=== PATIENT | female | born 1970 | race Caucasian/White ===

== ENCOUNTER 2023-03-06 15:12 | Outpatient (CLI) | payer MEDICARE, MEDICAID, SELFPAY ==
--- NOTE | ~2023-03-06 | XR_ITS ---
EXAMINATION: XR facial bones min 3V DATE: 03/06/2023 16:27 INDICATION: Facial pain. Multiple teeth removed. TECHNIQUE: 4 views of the facial bones were obtained. COMPARISON: None. FINDINGS: Bone alignment is normal. No fracture. There is mucosal thickening in the maxillary sinuses . The patient is edentulous. IMPRESSION: 1. No fracture. Reviewed, dictated and finalized at location A. IMPRESSION: 1. No fracture.
[2023-03-06 15:38] LABS: Basophils Absolute Auto 0.03 K/mm3 (0.00-0.10); Basophils Percent Auto 0.4 % (0.0-1.0); Eosinophils Percent Auto 1.3 % (1.0-6.0); Hemoglobin 12.6 g/dL (12.0-15.0); Immature Granulocyte Absolute 0.03 K/mm3 (0.00-0.00); Immature Granulocyte Percent A 0.4 % (0.0-0.0); Lymphocytes Absolute Auto 2.29 K/mm3 (1.10-4.50); Lymphocytes Percent Auto 29.6 % (18.0-42.0); Mean Corpuscular HGB Conc 32.3 g/dL (32.0-36.0); Mean Corpuscular Hemoglobin 28.2 pg (27.0-31.0); Mean Corpuscular Volume 87.2 fL (78.0-102.0); Mean Platelet Volume 10.1 fl (9.2-11.8); Monocytes Absolute Auto 0.47 K/mm3 (0.10-0.90); Monocytes Percent Auto 6.1 % (2.0-11.0); Neutrophils Absolute Auto 4.8 K/mm3 (1.7-7.2); Neutrophils Percent Auto 62.2 % (50.0-70.0); Platelet Count Result 367 K/mm3 (150-420); Red Blood Count 4.47 M/mm3 (4.20-5.40); White Blood Count 7.7 K/mm3 (4.8-10.8)
[2023-03-06 16:35] LABS: Anion Gap 9 mmol/L (8-16); Blood Urea Nitrogen 15 mg/dL (7-18); Calcium 9.4 mg/dL (8.5-10.1); Carbon Dioxide 29 mmol/L (21-32); Chloride 102 mmol/L (98-108); Estimated Glomerular Filt Rate > 60; Glucose 125 mg/dL (70-99); Osmolality Calculated 291 mOsm/kg (285-295); Potassium 4.1 mmol/L (3.5-5.1); Sodium 140 mmol/L (136-145)
[2023-03-07 08:54] LABS: Hemoglobin A1C 6.7 % (<5.7)
== END 2023-03-06 15:13 | disposition home or self-care (01) ==
LOC: CHSLAB 15:24
PROVIDERS: PCP Family Medicine; Visit Provider Family Medicine
DX: K08.89 Other specified disorders of teeth and supporting structures (principal); E72.51 Non-ketotic hyperglycinemia
CPT/HCPCS: 36415; 70150; 80048; 83036; 85025

== ENCOUNTER 2023-09-16 09:34 | Outpatient (CLI) | payer MEDICARE, SELFPAY ==
[2023-09-16 09:48] LABS: Basophils Absolute Auto 0.05 K/mm3 (0.00-0.10); Basophils Percent Auto 0.5 % (0.0-1.0); Eosinophils Absolute Auto 0.09 K/mm3 (0.02-0.50); Eosinophils Percent Auto 0.9 % (1.0-6.0); Hematocrit 42.1 % (35.0-49.0); Hemoglobin 13.5 g/dL (12.0-15.0); Immature Granulocyte Absolute 0.03 K/mm3 (0.00-0.00); Immature Granulocyte Percent A 0.3 % (0.0-0.0); Lymphocytes Absolute Auto 1.98 K/mm3 (1.10-4.50); Lymphocytes Percent Auto 20.7 % (18.0-42.0); Mean Corpuscular HGB Conc 32.1 g/dL (32.0-36.0); Mean Corpuscular Hemoglobin 28.5 pg (27.0-31.0); Mean Platelet Volume 11.1 fl (9.2-11.8); Monocytes Absolute Auto 0.56 K/mm3 (0.10-0.90); Monocytes Percent Auto 5.9 % (2.0-11.0); Neutrophils Absolute Auto 6.9 K/mm3 (1.7-7.2); Neutrophils Percent Auto 71.7 % (50.0-70.0); Platelet Count Result 327 K/mm3 (150-420); Red Blood Count 4.73 M/mm3 (4.20-5.40); White Blood Count 9.6 K/mm3 (4.8-10.8)
[2023-09-16 10:23] LABS: Alanine Aminotransferase 17 U/L (14-59); Albumin Level 3.9 g/dL (3.4-5.0); Alkaline Phosphatase 70 U/L (46-116); Anion Gap 5 mmol/L (8-16); Aspartate Amino Transferase 12 U/L (15-37); Bilirubin,Total 0.3 mg/dL (0.00-1.00); Blood Urea Nitrogen 12 mg/dL (7-18); Calcium 9.2 mg/dL (8.5-10.1); Carbon Dioxide 34 mmol/L (21-32); Chloride 103 mmol/L (98-108); Estimated Glomerular Filt Rate > 60; Glucose 152 mg/dL (70-99); Osmolality Calculated 296 mOsm/kg (285-295); Potassium 4.1 mmol/L (3.5-5.1); Sodium 142 mmol/L (136-145); Thyroid Stimulating Hormone 2.49 uIU/mL (0.36-3.74); Total Protein 7.1 g/dL (6.4-8.2)
== END 2023-09-16 09:35 | disposition home or self-care (01) ==
PROVIDERS: PCP Family Medicine; Visit Provider Family Medicine
DX: I10 Essential (primary) hypertension (principal); E11.9 Type 2 diabetes mellitus without complications
CPT/HCPCS: 36415; 80053; 83036; 84443; 85025

== ENCOUNTER 2023-12-10 09:48 | Outpatient (CLI) | payer MEDICARE, MEDICAID, SELFPAY ==
--- NOTE | ~2023-12-10 | XR_ITS ---
EXAMINATION: XR tibia fibula RT 2V INDICATION: Palpable lump of the right lower extremity TECHNIQUE: Two views of the right tibia and fibula are obtained. COMPARISON: None available FINDINGS: Bone alignment is normal. There is no fracture. No definite suspicious soft tissue abnormal ity is identified. There is a small soft tissue calcification medial to the knee. IMPRESSION: 1. Unremarkable leg radiographs. Reviewed, dictated and finalized at location B. ING ELEMENT BUILDER
--- NOTE | ~2023-12-10 | MM_ITS ---
EXAMINATION: MM screening layton BI w jesusita HISTORY: Screening TECHNIQUE: Craniocaudal and mediolateral oblique 3-D tomosynthesis images were obtained and synthetic 2-D images were generated. CAD analysis was submitted and interpreted. COMPARISON: No prior mammogram is available for comparison at this institution. BREAST PARENCHYMAL COMPOSITION: Not dense: There are scattered areas of fibroglandular density. FINDINGS: There is no evidence of suspicious mass, calcification, or architectural distortion to sugg est malignancy in either breast. There has been no suspicious interval change. IMPRESSION: 1. No mammographic evidence of malignancy. 2. Recommend routine screening mammography in one year. BI-RADS Category 1: Negative Reviewed, dictated and finalized at location A. E TRANSPORTATION TECHNICIAN
[2023-12-10 10:11] LABS: Basophils Absolute Auto 0.03 K/mm3 (0.00-0.10); Basophils Percent Auto 0.3 % (0.0-1.0); Eosinophils Absolute Auto 0.11 K/mm3 (0.02-0.50); Eosinophils Percent Auto 1.2 % (1.0-6.0); Hematocrit 43.5 % (35.0-49.0); Hemoglobin 13.6 g/dL (12.0-15.0); Immature Granulocyte Absolute 0.03 K/mm3 (0.00-0.00); Immature Granulocyte Percent A 0.3 % (0.0-0.0); Lymphocytes Absolute Auto 2.21 K/mm3 (1.10-4.50); Lymphocytes Percent Auto 23.7 % (18.0-42.0); Mean Corpuscular HGB Conc 31.3 g/dL (32.0-36.0); Mean Corpuscular Hemoglobin 27.2 pg (27.0-31.0); Mean Platelet Volume 10.8 fl (9.2-11.8); Monocytes Absolute Auto 0.62 K/mm3 (0.10-0.90); Monocytes Percent Auto 6.7 % (2.0-11.0); Neutrophils Absolute Auto 6.3 K/mm3 (1.7-7.2); Neutrophils Percent Auto 67.8 % (50.0-70.0); Platelet Count Result 341 K/mm3 (150-420); Red Cell Distribution Width 13.2 % (11.6-14.4); White Blood Count 9.3 K/mm3 (4.8-10.8)
== END 2023-12-10 09:49 | disposition home or self-care (01) ==
LOC: CHSLAB 09:51
PROVIDERS: PCP Family Medicine; Visit Provider Family Medicine
DX: M89.8X6 Other specified disorders of bone, lower leg (principal); Z12.31 Encounter for screening mammogram for malignant neoplasm of breast; R22.1 Localized swelling, mass and lump, neck
CPT/HCPCS: 36415; 73590; 77063; 77067; 85025

== ENCOUNTER 2024-01-06 11:08 | Outpatient (CLI) | payer MEDICARE, MEDICAID, SELFPAY ==
--- NOTE | ~2024-01-06 | XR_ITS ---
Right Shoulder Technique: AP and scapular Y views were obtained. Clinical History: Pain Findings: No fracture or dislocation is seen. Osseous alignment is anatomic. The glenohumeral and acr omioclavicular joint spaces are preserved. Soft tissues are unremarkable. Impression: Unremarkable right shoulder radiographs. Reviewed, dictated and finalized at [facility]. Impression: Unremarkable right shoulder radiographs.
== END 2024-01-06 11:09 | disposition home or self-care (01) ==
LOC: CHSIMG 11:11
PROVIDERS: PCP Family Medicine; Visit Provider Family Medicine
DX: M25.511 Pain in right shoulder (principal)
CPT/HCPCS: 73030

== ENCOUNTER 2024-04-19 16:03 | Outpatient (CLI) | payer MEDICARE, MEDICAID, SELFPAY ==
--- NOTE | ~2024-04-19 | XR_ITS ---
XR hip BI wo pelvis Ordering provider: Shahbaz Hawley MD History: . Pain in hip, Radiculopathy . Comparison: None. FINDINGS: BONES: No acute fracture or dislocation. HIP JOINT SPACES: Normal. SACROILIAC JOINT SPACES/LUMBAR SPINE: The sacroiliac joint spaces shows left sacroiliitis.. Mild dege nerative changes of the visualized lower lumbar spine. PUBIC SYMPHYSIS: Normal. SOFT TISSUES: Normal. IMPRESSION: No acute osseous abnormality of the bilateral hips and pelvis. Reviewed, dictated and finalized at location A.
--- NOTE | ~2024-04-19 | XR_ITS ---
3 VIEWS LUMBAR SPINE Ordering provider: Shahbaz Hawley MD History: . Pain in hip, Radiculopathy . Comparison: None. FINDINGS: VERTEBRAL BODIES: No visible fracture or subluxation. DISK SPACES: Normal. Multilevel facet joint disease SOFT TISSUES: Normal. Vascular calcifications. IMPRESSION: No acute osseous abnormality lumbar spine. Reviewed, dictated and finalized at location A.
[2024-04-19 16:45] LABS: Basophils Absolute Auto 0.05 K/mm3 (0.00-0.10); Basophils Percent Auto 0.5 % (0.0-1.0); Hemoglobin 12.4 g/dL (12.0-15.0); Immature Granulocyte Absolute 0.02 K/mm3 (0.00-0.00); Immature Granulocyte Percent A 0.2 % (0.0-0.0); Lymphocytes Absolute Auto 2.67 K/mm3 (1.10-4.50); Lymphocytes Percent Auto 26.6 % (18.0-42.0); Mean Corpuscular HGB Conc 32.6 g/dL (32-36); Mean Corpuscular Hemoglobin 28.7 pg (27.0-31.0); Mean Platelet Volume 10.9 fl (9.2-11.8); Monocytes Absolute Auto 0.64 K/mm3 (0.10-0.90); Monocytes Percent Auto 6.4 % (2.0-11.0); Neutrophils Absolute Auto 6.57 K/mm3 (1.70-7.20); Neutrophils Percent Auto 65.3 % (50.0-70.0); Platelet Count Result 357 K/mm3 (150-420); Red Blood Count 4.32 M/mm3 (4.20-5.40); White Blood Count 10.1 K/mm3 (4.8-10.8)
[2024-04-19 17:03] LABS: Alanine Aminotransferase 19 U/L (14-59); Albumin Level 4.3 g/dL (3.4-5.0); Alkaline Phosphatase 62 U/L (46-116); Anion Gap 10 mmol/L (4-12); Aspartate Amino Transferase 20 U/L (15-37); Bilirubin,Total 0.5 mg/dL (0.00-1.00); Blood Urea Nitrogen 13 mg/dL (7-18); Calcium 9.7 mg/dL (8.5-10.1); Carbon Dioxide 29 mmol/L (21-32); Chloride 100 mmol/L (98-108); Estimated Glomerular Filt Rate > 60; Glucose 113 mg/dL (70-99); Osmolality Calculated 289 mOsm/kg (285-295); Potassium 3.9 mmol/L (3.5-5.1); Sodium 139 mmol/L (136-145); Thyroid Stimulating Hormone 2.32 uIU/mL (0.36-3.74); Total Protein 7.4 g/dL (6.4-8.2)
[2024-04-20 09:40] LABS: Vitamin D 25 Hydroxy 32 ng/mL (30-100)
== END 2024-04-19 16:04 | disposition home or self-care (01) ==
LOC: CHSLAB 16:06
PROVIDERS: PCP Family Medicine; Visit Provider Family Medicine
DX: I10 Essential (primary) hypertension (principal); E11.9 Type 2 diabetes mellitus without complications; E55.9 Vitamin D deficiency, unspecified
CPT/HCPCS: 36415; 72100; 73521; 80053; 82306; 83036; 84443; 85025

== ENCOUNTER 2024-04-21 13:11 | Outpatient (CLI) | payer MEDICARE, MEDICAID, SELFPAY ==
--- NOTE | ~2024-04-21 | XR_ITS ---
EXAMINATION: XR skull min 4V DATE: 04/21/2024 16:07 INDICATION: Skin lesion of scalp. TECHNIQUE: 4 views of the skull were obtained. COMPARISON: None. FINDINGS: Bone alignment is normal. No fracture. There is no lytic lesion of bone. IMPRESSION: 1. Normal skull. Reviewed, dictated and finalized at location A. IMPRESSION: 1. Normal skull.
--- NOTE | ~2024-04-21 | US_ITS ---
EXAMINATION: US arterial ankle brachial ind DATE: 04/21/2024 13:44 INDICATION: Peripheral vascular disease with decreased pulses in the right lower limb TECHNIQUE: Segmental pressures and plethysmographic and Doppler waveforms of the brachial and lower e xtremity arteries were obtained. COMPARISON: None. FINDINGS: Right and left brachial artery pressures of 180 mm Hg and 186 mm Hg, respectively, are concordant (no rmal difference <= 30 mmHg). The right ankle-brachial index (ANTOINETTE) is 1.23 (normal >= 0.9-1.0). The right great toe-brachial index (TBI) is 1.02 (normal >= 0.65). Arterial Doppler waveforms are biphasic with brisk systolic upstrokes at both right posterior tibial and dorsalis pedis arteries. The left ANTOINETTE is 1.16. The left TBI is 1.01. Arterial Doppler waveforms are biphasic with brisk systol ic upstrokes at both left posterior tibial and dorsalis pedis arteries. IMPRESSION: 1. No significant arterial occlusive disease with normal bilateral ABIs and TBIs. Reviewed, dictated and finalized at location B. IMPRESSION: 1. No significant arterial occlusive disease with normal bilateral ABIs and TBI s.
== END 2024-04-21 13:12 | disposition home or self-care (01) ==
PROVIDERS: PCP Family Medicine; Visit Provider Family Medicine
DX: I73.9 Peripheral vascular disease, unspecified (principal); M25.559 Pain in unspecified hip; L98.9 Disorder of the skin and subcutaneous tissue, unspecified
CPT/HCPCS: 70260; 93922

== ENCOUNTER 2025-04-19 09:01 | Outpatient (CLI) | payer MEDICARE, MEDICAID, SELFPAY ==
--- NOTE | ~2025-04-19 | XR_ITS ---
Left Hand Technique: PA, oblique, and lateral views were obtained. Clinical History: Swelling at base of thumb Findings: No acute fracture or dislocation is seen. Osseous alignment is anatomic. Joint spaces are p reserved. Soft tissues are unremarkable. Impression: Unremarkable left hand. Reviewed, dictated and finalized at location . Impression: Unremarkable left hand.
== END 2025-04-19 09:02 | disposition home or self-care (01) ==
LOC: CHSIMG 09:03
PROVIDERS: PCP Family Medicine; Visit Provider Family Medicine
DX: M79.642 Pain in left hand (principal)
CPT/HCPCS: 73130

== ENCOUNTER 2025-05-10 11:07 | Outpatient (CLI) | payer MEDICARE, MEDICAID, SELFPAY ==
--- NOTE | ~2025-05-10 | XR_ITS ---
EXAMINATION: XR chest 2V 05/10/2025 11:38 INDICATION: Cough and shortness of breath. Former smoker. PROCEDURE: 2 view chest COMPARISON: No prior studies for comparison. FINDINGS: The lungs are clear. The cardiomediastinal silhouette is within normal limits. There are no pleural effusions. There is no pneumothorax suspected. IMPRESSION: 1: NO ACUTE CARDIOPULMONARY DISEASE. Reviewed, dictated and finalized at location A.
--- OUTSIDE RECORDS SUMMARY | 2025-05-10 11:13 | XMS_ITS | Encounter Summary ---
Author Organization [facility] Address [facility] [place] [address] Care Team Providers Care Machine Plate Stacker Name Role Phone Alphonse Cochran MD Primary Care Provider [phone] Alphonse Cochran MD Primary Care Provider [phone] Alphonse Cochran MD Unavailable [phone] Shahbaz Hawley MD Primary Care Provider [phone] Encounter Details Date Type Department Care Team (Late st Contact Info) Description 03/27/2019 Abstract [facility] [address] [place] [address] , Generic Conversion, Social History Tobacco Use Types Packs/Day Years Used Date Smoking Tobacco: Former Smokeless Tobacco: Never Comments Unknown Sex and Gender Information Value Date Recorded Sex Assigned at Female 02/17/2023 8:51 AM CDT Legal Sex Female 7:25 PM CDT Gender Identity Female 02/17/2023 8:51 AM CDT Sexual Orientation Straight 02/17/2023 8: 51 AM CDT documented as of this encounter Plan of Treatment Upcoming Encounters Date Type Department Care Team (Late Contact Info) Description 05/19/2025 4:[address] [facility] [address] [place] [address] Sahhbaz Hawley MD [address] [place] [address] documented as of this encounter Visit Diagnoses Not on filedocumented in this encounter Care Teams Machine Plate Stacker Relationship Specialty Start Date End Date Alphonse Cochran MD [address] [place] [address] PCP - General FAMILY PRACTICE 03/11/19 07/15/20 Alphonse Cochran MD [address] [place] [address] PCP - General FAMILY PRACTICE 07/16/20 08/12/22 Shahbaz aHwley MD [address] [place] [address] PCP - [facility] PRACTICE 08/13/22 Alphonse Cochran MD [address] [place] [id number] FAMILY PRACTICE 07/16/20 documented as of this encounter
--- OUTSIDE RECORDS SUMMARY | 2025-05-10 11:13 | XMS_ITS | Clinical Summary ---
Author Organization [facility] Address [facility] [place] [address] Care Team Providers Care Painter Structural Steel Name Role Phone Alphonse Cochran MD Unavailable [phone] Stevie Catse MD Primary Care Provider [phone] Allergies Active Allergy Reactions Criticality Noted Date Comments Cyanoacrylate Hives 12/25/2023 Surgical dermabond Antihistamines, Diphenhydramine-Type Unknown 06/11/2018 Aspirin Anaphylaxis,Unknown High 03/29/2016 Aspirin Anaphylaxis High 07/16/2020 Hydrocortisone Unknown 03/22/2019 Ibuprofen Unknown 03/22/2019 Ibuprofen Rash Low 07/16/2020 Iodine Unknown 03/29/2016 Other reaction(s): Nausea & rash Iodine Rash Low 07/16/2020 Latex Unknown 06/11/2018 Bacitracin-Polymyxin B Rash Low 07/16/2020 Penicillins Unknown 06/11/2018 Penicillins Anaphylaxis High 07/16/2020 Triprolidine-Pse Unknown 06/11/2018 Medications hydrocodone-ac etaminophen 10-325 MG tablet Take 1 tablet by mouth every 6 (six) hours as needed for Pain. Active cyclobenzaprin e 10 MG tablet Take 1 tablet (10 mg total) by mouth 3 (three) times daily as needed for Muscle Spasms. Active naproxen 500 MG tablet Take 1 tablet (500 mg total) by mouth 2 (two) times daily with meals. Active sodium chloride (OCEAN) 0.65 % Solution 1 spray by Each Nostril route as needed for Dryness. Activ e GARCINIA CAMBOGIA-CHROM IUM OR Active Twin, Zingiber officinalis, (TWIN ROOT) 550 MG Cap Take 1 capsule by mouth 2 (two) times daily. Active Apple Cider Vinegar 500 MG Tab Active niacin 250 MG tablet Take 2 tablets (500 mg total) by mouth 2 (two) times daily with meals. Active SAFFLOWER OIL-VITAMIN B6 OR Active ECHINACEA ROOT OR Active Black Cohosh 40 MG Cap Active coenzyme Q-10 150 MG capsule Take 1 capsule (150 mg total) by mouth daily. Active fish oil (OMEGA-3 FATTY ACID) 1000 MG Cap capsule Take 1 capsule (1,000 mg total) by mouth 2 (two) times daily. Active Cinnamon 500 MG Tab Take 1,200 mg by mouth. Active melatonin 5 MG tablet Take 2 tablets (10 mg total) by mouth nightly as needed. Active Ashwagandha 500 MG Cap Take 800 mg by mouth. Active albuterol sulfate HFA 108 (90 Base) MCG/ACT inhaler Inhale 2 puffs into the lungs every 6 (six) hours as needed for Wheezing. Active albuterol (2.5 MG/3ML) 0.083% nebulizer solution Inhale 1 Units into the lungs every 4 (four) hours as needed. Active pregabalin 25 MG capsule Take 1 capsule (25 mg total) by mouth daily. 06/21/20 20 Active EPINEPHrine 0.3 MG/0.3ML injection INJECT 0.3 ML (OR CC) (1PEN) intramuscularly once NEEDED FOR ANAPHYLAXIS- SEEK MEDICAL ATTENTION RIGHT AWAY 04/23/20 23 Active Active Problems Problem Noted Date Diagnosed Date Strain of left biceps, initial encounter 023 Essential hypertension 07/19/2020 Lumbar degenerative disc disease 03/30/2019 Osteoporosis 03/22/2019 Degeneration of intervertebral disc of lumbar re gion 06/11/2018 Immunizations Immunization Administration Dates Next Due Influenza Adult (Generic) 02/21/2022(Deferred: A llergy) Family History Medical History Relation Comments Blood Disease Father Cancer Father Diabetes Father Uterine Cancer Maternal Aunt 1 Uterine Cancer Maternal Aunt 2 Uterine Cancer Maternal Grandmother Cancer Mother Diabetes Mother Relation Status Comments Brother 1 Alive Brother 2 Alive Father Maternal Aunt 1 Maternal Aunt 2 Maternal Grandfather Maternal Grandmother Mother Alive Paternal Grandfather Paternal Grandmother Social History Tobacco Use Types Packs/Day Years Used Date Smoking Tobacco: Former Cigarettes Q uit: 12/18/2018 Smokeless Tobacco: Never Tobacco Cessation:Counseling Given: Not Answered Alcohol Use Standard Drinks/Week Comments Not Currently 0 (1 standard drink = 0.6 oz pur e alcohol) PHQ-2 Answer Date Recorded PHQ-2 Score - If the patient scores above 3, please move on to questions 3-9 0 02/21/2022 Comments No Sex and Gender Information Value Date Recorded Sex Assigned at Female 02/17/2023 8:51 AM CDT Legal Sex Female 7:25 PM CDT Gender Identity Female 02/17/2023 8:51 AM CDT Sexual Orientation Straight 02/17/2023 8: 51 AM CDT Occupation Industry Job Start Date Job End Date Not on file Not on file Not on file Not on file Last Filed Vital Signs Vital Sign Reading Time Taken Comments Blood Pressure 200/97 03/04/2022 11:29 AM CDT Pulse 77 03/04/2022 11:29 AM CDT Temperature 37.1 C (98.7 F) 03/04/2022 11:29 AM CDT Respiratory Rate 16 03/04/2022 11:29 AM CDT Oxygen Saturation 100% 03/04/2022 11:29 AM CDT Inhaled Oxygen Concentration - - Weight 63.5 kg (140 lb) 12/25/2023 9:54 AM BEAUTICIAN APPRENTICE Height 152.4 cm (5') 12/25/2023 9:54 AM BEAUTICIAN APPRENTICE Body Mass Index 27.34 12/25/2023 9:54 AM BEAUTICIAN APPRENTICE Plan of Treatment Upcoming Encounters Date Type Department Care Team (Late st Contact Info) Description 05/19/2025 4:[address] [facility] [address] [place] [address] Stevie Cates MD [address] [place] [address] Health Maintenance Due Date Last Done Comments Colorectal Cancer Screening Colonoscopy (10 Years) 1971 Annual Physical 12/21/1974 Hepatitis C 12/21/1989 Hepatitis B Vaccines (1 of 3 - 19+ 3-dose series) 12/21/1990 Pneumococcal Vaccine: 50+ Years (1 of 1 - PCV) 12/21/2021 Zoster Vaccines (1 of 2) 12/21/2021 DTaP, Tdap and Td Vaccines ( 2 - Td or Tdap) 06/18/2022 06/18/2012 COVID-19 Vaccine (1 - 2023-2 5 season) 2024 Mammogram Screening 07/15/2024 07/15/2022, 07/10/2021, 06/27/2020 Meningococcal B Vaccine Aged Out No l onger eligible based on patient's age to complete this topic Meningococcal Vaccine Aged Out No yossi ami eligible based on patient's age to complete this topic RSV Immunizations Under 20 Months Aged Out No longer eligible b ased on patient's age to complete this topic Procedures Procedure Name Priority Date/Time Associated Diagnosis Comments MG SCREENING W FRANCISCA YULI DIGI Routine 07/15/2022 3:27 PM CDT Encounter for screening mammogram for malignant neoplasm of breast from Last 3 Months or Most Recently Relevant to Health Maintenance Results * MG SCREENING W FRANCISCA YULI DIGI (07/15/2022 3:27 PM CDT) Anatomical Region Laterality Modality Breast Bilateral Mammography 07/16/2022 4:59 PM CDT Impressions 07/16/2022 4:59 PM CDT IMPRESSION: No suspicious change since the previous exams. Recommendation: 1: Routine Screening Bilateral in 1 Year Assessment: ACR BI-RADS 2 - BENIGN FINDING(S) Ordered By: STEVIE CATES Interpreted By: Pablo Jc MD, 07/16/2022 4:59 PM Narrative 07/16/2022 4:59 PM CDT Examination: Digital screening mammogram with CAD. Clinical history: Asymptomatic patient presents for routine screening. Comparison: 07/10/2021, 06/27/2020, 01/15/2019, 01/05/2018. Technique: Bilateral digital mammograms. The exam was interpreted with the use of a computer-aided detection (CAD) system. Additional 3-D tomosynthesis images were acquired. Tissue density: The breast tissue contains scattered fibroglandular densities. Findings: The breast tissue contains scattered fibroglandular densities. Benign-appearing calcification noted. No suspicious mass, microcalcification or area of architectural distortion can be identified. From a mammographic standpoint, routine followup in one year would seem adequate. Stevie Cates MD MAMMO Final Result from Last 3 Months or Most Recently Relevant to Health Maintenance Insurance MEDICAID MEDICARE Care Teams Painter Structural Steel Relationship Specialty Start Date End Date Stevie Cates MD [address] [place] [address] PCP - General FAMILY PRACTICE 08/13/22 Alphonse Cochran MD [address] [place] [address] FAMILY PRACTICE 07/16/20
--- OUTSIDE RECORDS SUMMARY | 2025-05-10 11:13 | XMS_ITS | Encounter Summary ---
Author Organization [facility] Address [address] [place] [address] Care Team Providers Care Foundry Finisher Name Role Phone Alphonse Cochran MD Unavailable Shahbaz Hawley MD Primary Care Provider [phone] Encounter Details Date Type Department Care Team (Late Contact Info) Description 12/25/2023 [employer] Message Enc [place] [address] Aurora Damon PA [address] [place] [address] Visit Follow Up Social History Tobacco Use Types Packs/Day Years Used Date Smoking Tobacco: Former Cigarettes Q uit: 12/18/2018 Smokeless Tobacco: Never Alcohol Use Standard Drinks/Week Comments Not Currently [...] file Not on file Not on file documented as of this encounter Plan of Treatment Upcoming Encounters Date Type Department Care Team (Late Contact Info) Description 05/19/2025 4:[address] [facility] [address] [place] [address] Shahbaz Hawley MD [address] [place] [address] documented as of this encounter Visit Diagnoses Not on filedocumented in this encounter Care Teams Foundry Finisher Relationship Specialty Start Date End Date Shahbaz Hawley MD [address] [place] [address] PCP - General FAMILY PRACTICE 08/13/22 Alphonse Cochran MD [address] [place] [address] FAMILY PRACTICE 07/16/20 documented as of this encounter
--- OUTSIDE RECORDS SUMMARY | 2025-05-10 11:13 | XMS_ITS | Encounter Summary ---
Author Organization [facility] Address [facility] [place] [address] Care Team Providers Care Stock Ranch Supervisor Name Role Phone Alphonse Cochran MD Primary Care Provider [phone] Alphonse Cochran MD Unavailable [phone] Shahbaz Hawley MD Primary Care Provider [phone] Encounter Details Date Type Department Care Team ([facility] Contact Info) Description 07/17/2020 Abstract [facility] [address] [place] [address] Hubert Melgoza MD Social History Tobacco Use Types Packs/Day Years Used Date Smoking Tobacco: Former Cigarettes Q uit: 12/18/2018 Smokeless Tobacco: Never Alcohol Use Standard Drinks/Week Comments Not Currently 0 (1 standard drink = 0.6 oz pur e alcohol) Comments No Sex and Gender Information Value Date Recorded Sex Assigned at Female 02/17/2023 8:51 AM CDT Legal Sex Female 7:25 PM CDT Gender Identity Female 02/17/2023 8:51 AM CDT Sexual Orientation Straight 02/17/2023 8: 51 AM CDT Occupation Industry Job Start Date Job End Date Not on file Not on file Not on file Not on file COVID-19 Exposure Response Date Recorded In the last month, have you been in contact with someone who was confirmed or suspected to have Coronavirus / COVID-19? No / Unsure 07/20/2020 12:15 PM CDT documented as of this encounter Plan of Treatment Upcoming Encounters Date Type Department Care Team ([facility] Contact Info) Description 05/19/2025 4:30 PM CDT Appointment [place] [address] [place] [address] Shahbaz Hawley MD [address] [place], [place] [address] documented as of this encounter Visit Diagnoses Not on filedocumented in this encounter Care Teams Stock Ranch Supervisor Relationship Specialty Start Date End Date Alphonse Cochran MD [address] [place] [address] PCP - General FAMILY PRACTICE 07/16/20 08/12/22 Shahbaz Hawley MD [address] [place] [address] PCP - General FAMILY PRACTICE 08/13/22 Alphonse Cochran MD [address] [place] [address] FAMILY PRACTICE 07/16/20 documented as of this encounter
[2025-05-10 11:27] LABS: Hematocrit 40.5 % (35.0-49.0); Hemoglobin 12.8 g/dL (12.0-15.0); Immature Granulocyte Percent A 0.7 % (0.0-0.0); Lymphocytes Absolute Auto 3.03 K/mm3 (1.10-4.50); Mean Corpuscular HGB Conc 31.6 g/dL (32-36); Mean Corpuscular Hemoglobin 28.3 pg (27.0-31.0); Mean Corpuscular Volume 89.6 fL (78.0-102.0); Nucleated Red Blood Cells Absolute Auto 0.00 K/mm3 (0.00-0.00); Nucleated Red Blood Cells Perc 0.0 % (0-0.0); Platelet Count Result 342 K/mm3 (150-420); Red Blood Count 4.52 M/mm3 (4.20-5.40); White Blood Count 12.9 K/mm3 (4.8-10.8)
[2025-05-10 12:17] LABS: Anion Gap 4 mmol/L (4-12); Blood Urea Nitrogen 12 mg/dL (7-17); Calcium 9.5 mg/dL (8.4-10.2); Carbon Dioxide 32 mmol/L (22-30); Chloride 106 mmol/L (98-107); Estimated Glomerular Filt Rate > 60; Glucose 127 mg/dL (65-110); Osmolality Calculated 295 mOsm/kg (285-295); Potassium 4.0 mmol/L (3.4-5.0); Sodium 142 mmol/L (137-145)
[2025-05-10 12:43] LABS: Hemoglobin A1C 6.2 % (<5.7)
== END 2025-05-10 11:08 | disposition home or self-care (01) ==
LOC: CHSLAB 11:10
PROVIDERS: PCP Family Medicine; Visit Provider Family Medicine
DX: I10 Essential (primary) hypertension (principal); E11.9 Type 2 diabetes mellitus without complications; E55.9 Vitamin D deficiency, unspecified; R05.8 Other specified cough
CPT/HCPCS: 36415; 71046; 80048; 82306; 83036; 85025

== ENCOUNTER 2025-05-18 10:13 | Outpatient (CLI) | payer MEDICARE, MEDICAID, SELFPAY ==
--- OUTSIDE RECORDS SUMMARY | 2025-05-18 10:40 | XMS_ITS | Clinical Summary ---
Author Organization [facility] Address [facility] [place] [address] Care Team Providers Care Electrical Calibrator Name Role Phone Alphonse Cochran MD Unavailable [phone] Stevie Cates MD Primary Care Provider [phone] Allergies Active Allergy Reactions Criticality Noted Date [...] 63.5 kg (140 lb) 12/25/2023 9:54 AM JEWELRY SALES ASSOCIATE Height 152.4 cm (5') 12/25/2023 9:54 AM JEWELRY SALES ASSOCIATE Body Mass Index 27.34 12/25/2023 9:54 AM JEWELRY SALES ASSOCIATE Plan of Treatment Upcoming Encounters Date Type Department Care Team (Late st Contact Info) Description 05/19/2025 10:[address] [facility] [address] [facility] [place] [address] Stevie Cates MD [address] [place] [address] Health Maintenance Due Date Last [...] Health Maintenance Insurance MEDICAID MEDICARE Care Teams Electrical Calibrator Relationship Specialty Start Date End Date Stevie Cates MD [address] [place] [address] PCP - General FAMILY PRACTICE 08/13/22 Alphonse Cochran MD [address] [place] [address] FAMILY PRACTICE 07/16/20
--- OUTSIDE RECORDS SUMMARY | 2025-05-18 10:40 | XMS_ITS | Encounter Summary ---
Author Organization [facility] Address [facility] [place] [address] Care Team Providers Care Washer Engineer Name Role Phone Alphonse Cochran MD Primary Care Provider [phone] Alphonse Cochran MD Unavailable [phone] Shahbaz Hawley MD Primary Care Provider [phone] Encounter Details Date Type Department Care Team ([facility] Contact Info) Description 07/17/2020 Abstract [facility] [address] [place] [address] Hubert Melgoza MD Social History Tobacco Use [...] Upcoming Encounters Date Type Department Care Team ([facility] Contact Info) Description 05/19/2025 10:00 AM CDT Appointment [place] [facility] [address] [place] [address] Shahbaz Hawley MD [address] [place] [address] documented as of this encounter Visit Diagnoses Not on filedocumented in this encounter Care Teams Washer Engineer Relationship Specialty Start Date End Date Alphonse Cochran MD [address] [place] [address] PCP - General FAMILY PRACTICE 07/16/20 08/12/22 Shhabaz Hawley MD [address] [place] [address] PCP - General FAMILY PRACTICE 08/13/22 Alphonse Cochran MD [address] [place] [address] FAMILY PRACTICE 07/16/20 documented as of this encounter
--- OUTSIDE RECORDS SUMMARY | 2025-05-18 10:40 | XMS_ITS | Encounter Summary ---
Author Organization [facility] Address [address] [place] [address] Care Team Providers Care Vp Security Name Role Phone Alphonse Cochran MD Unavailable [phone] Shahbaz Hawley MD Primary Care Provider [phone] Encounter Details Date Type Department Care Team (Late Contact Info) Description 12/25/2023 [employer] Message Enc [facility] [place] [address] Aurora Damon PA [address] [place] [address] Visit Follow Up Social History Tobacco Use [...] Care Team (Late Contact Info) Description 05/19/2025 10:[address] [facility] [address] [place] [address] Shahbaz Hawley MD [address] [place] [address] documented as of this encounter Visit Diagnoses Not on filedocumented in this encounter Care Teams Vp Security Relationship Specialty Start Date End Date Shahbaz Hawley MD [address] [place] [address] PCP - General FAMILY PRACTICE 08/13/22 Alphonse Cochran MD [address] [place] [address] FAMILY PRACTICE 07/16/20 documented as of this encounter
--- OUTSIDE RECORDS SUMMARY | 2025-05-18 10:40 | XMS_ITS | Encounter Summary ---
Author Organization [facility] Address [address] [place] [id number] Care Team Providers Care Ship Wirer Name Role Phone Alphonse Cochran MD Primary Care Provider [phone] Alphonse Cochran MD Primary Care Provider [phone] Alphonse Cochran MD Unavailable [phone] Shahbaz Hawley MD Primary Care Provider [phone] Encounter Details Date Type Department Care Team (Late st Contact Info) Description 03/27/2019 Abstract SFL CONVERSION [address] [place] [address] , Generic Conversion, Social History [...] [facility] [address] [place] [address] Shahbaz Hawley MD [address] [place] [address] documented as of this encounter Visit Diagnoses Not on filedocumented in this encounter Care Teams Ship Wirer Relationship Specialty Start Date End Date Alphonse Cochran MD [address] [place] [address] PCP - General FAMILY PRACTICE 03/11/19 07/15/20 Alphonse Cochran MD [address] [place] [address] PCP - General FAMILY PRACTICE 07/16/20 08/12/22 Shahbaz Hawley MD [address] [place] [address] PCP - [facility] PRACTICE 08/13/22 Alphonse Cochran MD [address] [place] [id number] FAMILY PRACTICE 07/16/20 documented as of this encounter
--- NOTE | 2025-06-15 09:45 | WPDPFTINT ---
PFT Procedure Performed PFT Procedure Performed Spirometry with Pre/Post Bronchodilator Plethysmography (Lung Vol) Diffusing Cap (DLCO) Flow Vol Loop PFT Interpretation DOS: 05/18/2025 REQUESTING: Dr Hawley REASON FOR TESTING: Shortness of breath PULMONARY FUNCTION TESTS Results are reliable and reproducible. Repeatability of spirometry FEV1 maneuver pre and post bronchodilator is Grade A. [place]: Elisabeth Cotton Dust reference equations were used. Spirometry: The pre-bronchodilator FEV1 is 2.47 L, 107%, normal. The pre-bronchodilator FVC is 3.20 L, 115%, normal. The FEV1/FVC ratio is 77%, normal. After bronchodilator, the FEV1 is 2.71 L, 118%, +10% increase. After bronchodilator, the FVC is 3.31 L, 118%, +3% increase. The FEV1/FVC ratio is 82%. Lung volumes: The total lung capacity is 4.55 L, 105%, normal. The FRC is 2.27 L, 98%, normal. The residual volume is 1.27 L, 83%, normal. The RV/TLC is 28%, normal. Airway resistance is normal. Diffusion: DLCO is 16.7, 81%, normal. The DLCO/VA is 3.77, 94%, normal. Flow volume loop: The flow volume loop shows a normal pattern. IMPRESSION: This pulmonary function test shows normal spirometry with a non-statistically significant response to bronchodilator, normal lung volumes and normal diffusion. No prior studies for comparison. Lizbeth Celestin MD
== END 2025-05-18 10:14 | disposition home or self-care (01) ==
LOC: CHSLAB 10:16 → CHSCARD 10:21
PROVIDERS: PCP Family Medicine; Visit Provider Family Medicine
DX: R05.8 Other specified cough (principal)
CPT/HCPCS: 94060; 94726; 94729

== ENCOUNTER 2025-06-22 11:05 | Outpatient (CLI) | payer MEDICARE, MEDICAID, SELFPAY ==
--- NOTE | ~2025-06-22 | XR_ITS ---
XR hand LT min 3V 06/22/2025 11:31 Indication: Osteoarthritis Procedure: 3 views left hand Comparison: 04/19/2025 Findings: There is mild polyarticular osteoarthritis primarily involving the first digit. No fracture, subluxation or dislocation. Normal mineralization. No soft tissue abnormality. No foreign bodies. Impression: 1: Mild polyarticular osteoarthritis. Reviewed, dictated and finalized at location O. Impression: 1: Mild polyarticular osteoarthritis.
== END 2025-06-22 11:06 | disposition home or self-care (01) ==
PROVIDERS: PCP Family Medicine; Visit Provider Plastic Surgery
DX: M18.12 Unilateral primary osteoarthritis of first carpometacarpal joint, left hand (principal)
CPT/HCPCS: 73130

== ENCOUNTER 2025-08-16 11:34 | Outpatient (CLI) | payer MEDICARE, MEDICAID, SELFPAY ==
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
== END 2025-08-16 11:35 | disposition home or self-care (01) ==
LOC: CHSIMG 11:36
PROVIDERS: PCP Family Medicine; Visit Provider Family Medicine
DX: R10.20 Pelvic and perineal pain unspecified side (principal)
CPT/HCPCS: 73502

== ENCOUNTER 2025-08-31 12:25 | Outpatient (CLI) | payer MEDICARE, MEDICAID, SELFPAY ==
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
== END 2025-08-31 12:26 | disposition home or self-care (01) ==
PROVIDERS: PCP Family Medicine; Visit Provider Family Medicine
DX: M25.561 Pain in right knee (principal); M25.562 Pain in left knee
CPT/HCPCS: 73562